=== PATIENT | female | born 1965 | race Caucasian/White ===

== ENCOUNTER 2024-03-08 09:43 | Emergency (ER) | payer OTHER, SELFPAY ==
[2024-03-08 09:44] VITALS: BP 138/73
--- NOTE | 2024-03-08 10:44 | ED.MUSCINJ ---
HPI-Injury
General
Chief Complaint: Fall
Source: patient
Exam Limitations: none
Time Seen by Provider: 03/08/24 10:16
Nursing documentation reviewed up to this point in time: agreed with
History of Present Illness-Injury
Initial Injury comments:
58-year-old female with history of HTN, MS, hypothyroid, chronic right foot drop and neuropathy presents 1 week after twisting her right ankle on the last step as she was coming down her stairs at home. She was initially seen at urgent care with
pain dorsum of foot, had a negative x-ray and given a fracture shoe to wear. She states initially it started to feel better but then started to get worse again and now she cannot weight-bear due to pain in the lateral aspect of her right ankle.
Past History
Past History
ED Past Medical History: HTN, Hypothyroidism and Other (Multiple sclerosis)
ED Past Surgical History: Orthopedic
Patient has exhibited threatening behavior?: No
Social History
Tobacco: Non-smoker
Alcohol: Occasional
Personal: Single
Living: alone (Patient lives in [place], she is here for the summer.)
Employment: Employed
Review of Systems
Review of Systems
Allergies reviewed?: Yes
All Other Systems: ROS reviewed and negative except as documented in HPI and ROS
Musculoskeletal: Reports other (Pain lateral aspect of right ankle.)
Skin: Reports other (Bruising lateral aspect of right foot just below the ankle also across the distal dorsum of her foot)
Musculoskeletal Injury Exam
Musculoskeletal Injury Exam
Right Lateral Ankle:
Pain with Movement?: Moderate
Tender to palpation?: Moderate (Of the talofibular ligament)
Soft tissue swelling?: Mild
External deformity and angulation?: None
Strain- Sprain- Tear (Connective tissue injury)?: Moderate
Joint instability?: No
Malalignment/deformity?: No
Range of motion: Limited (Mildly)
Distal skin color and temperature: normal-warm & good color
Capillary Refill: normal
Normal distal neurovascular exam?: Yes
Phy Exam
Physical Exam
Physical Exam:
PHYSICAL EXAMINATION:
General: no apparent distress, not acutely ill
Neuro: alert and oriented.
Psychiatric: well kept. interactive and cooperative
Musculoskeletal: Moves with ease
Skin: Warm, pink.
Injury Course
Orders/Labs/Results
Orders:
Orders
03/08/24 09:46
Ankle, Right 3 view CR [CR Ankle - Right Min 3 Views *] Urgent
Comment:
Reason For Exam: pain
03/08/24 10:44
Ortho Boot Right- Treatment ONCE
Short or tall?: Tall
MDM/Problems Addressed
Differential Diagnosis Includes:
Fx vs sprain ankle
MDM/Problems Addressed:
58-year-old female with history of HTN, MS, hypothyroid, chronic right foot drop and neuropathy presents 1 week after twisting her right ankle on the last step as she was coming down her stairs at home. She was initially seen at urgent care with
pain dorsum of foot, had a negative x-ray and given a fracture shoe to wear. She states initially it started to feel better but then started to get worse again and now she cannot weight-bear due to pain in the lateral aspect of her right ankle.
X-ray of left ankle read initially by this examiner: No obvious fracture. There is a tiny little opacity that may be a mild flake off of the distal fibula.
Ortho boot applied, patient ambulating well afterwards.
*Critical Care Note
Total Time (30-74mins, 75-104mins- exclusive of procedures): Not Applicable
ED Attending Note
-
Portions of this chart may have been created with voice recognition software.� Occasional wrong word or��sound alike� substitutions may have occurred due to the inherent limitations of voice recognition software.
Discharge Plan
Departure
Patient Disposition: Home (Routine Discharge)
Date of Disposition: 03/08/24
Time of Disposition: 10:51
Patient with high blood pressure during this ER visit?: No
Condition: Good
Discharge Problem:
Soft tissue injury of right ankle
Instructions: Ankle Sprain ED, Foot sprain
Referrals:
El Rodriguez MD [Active] - As needed
Activity Restrictions/Additional Instructions:
As we discussed, Tylenol or ibuprofen as needed for pain.
Wear the orthopedic boot when up and around until the ankle is a lot better And you can walk comfortably without it
See the orthopedic doctor if your ankle is not a lot better in 10 days or not 100% better in 4 weeks
If you happen to be up and around on the foot for lengthy periods, cool compress to the area 15 minutes off and on to keep swelling minimal
Interventions
Interventions:
*Risk Screen - Suicide Last Done: 03/08/24 10:25
*General Assessment Last Done: 03/08/24 10:25
*Neglect/Abuse Screening Last Done: 03/08/24 10:25
*ED COVID-19 Vaccine History Last Done: 03/08/24 10:25
*Nursing Disposition Last Done: 03/08/24 11:33
ED-Musculoskeletal Assessment Last Done: 03/08/24 10:23
ED- Neurological Assessment Last Done: 03/08/24 10:23
ED-Skin Assessment Last Done: 03/08/24 10:23
Discharge Date and Time
Discharge Date/Time: 03/08/24 11:34
Print Language: UKRAINIAN
== END 2024-03-08 11:34 | disposition home or self-care (01) ==
LOC: EMR 09:43
PROVIDERS: EMERGENCY PHYSICIAN Emergency Medicine; FAMILY PHYSICIAN Internal Medicine
DX: S99.911A Unspecified injury of right ankle, initial encounter (principal); S90.31XA Contusion of right foot, initial encounter; X50.1XXA Overexertion from prolonged static or awkward postures, initial encounter; Y93.89 Activity, other specified; I10 Essential (primary) hypertension; G35 Multiple sclerosis; M21.371 Foot drop, right foot; G62.9 Polyneuropathy, unspecified; E03.9 Hypothyroidism, unspecified
CPT/HCPCS: 99283; 29515; 73610